=== PATIENT | male | born 1980 ===

== ENCOUNTER 2025-01-15 08:40 | Outpatient (REF) | payer OTHER, SELFPAY ==
--- NOTE | 2025-01-15 08:45 | EMG_ITS ---
FINDINGS: Bilateral median and ulnar motor and sensory studies were performed. Bilateral radial sensory studies were performed. Bilateral median and lateral antecubital brachial sensory studies were performed and paraspinal muscles were tested with a needle. IMPRESSION: Mild bilateral ulnar neuropathy across cubital tunnel. MD EUGENIA Johns/MADDIE / [id number]
== END 2025-01-15 08:41 | disposition home or self-care (01) ==
LOC: HO.NEURO 08:40
PROVIDERS: PCP Internal Medicine; Visit Provider Internal Medicine
DX: R20.2 Paresthesia of skin (principal)
CPT/HCPCS: 95886; 95913